=== PATIENT | male | born 1935 | race Caucasian/White ===

== ENCOUNTER 2017-02-06 05:13 | Inpatient (IN) | payer OTHER ==
[~2017-02-06] VITALS: Ht 167.6 cm; Wt 52.6 kg
[2017-02-06] VITALS (10 sets, daily range): BP systolic 81–133; BP diastolic 33–109
--- NOTE | ~2017-02-06 | HC ---
[facility] [place] [address] CONSULTATION Name: AMANDA JULIAN Room #: 544-P [facility] IN ..#: [id number] Admission: 02/06/17 Attend Phys: Franky Ruffin MD, Discharge: 02/07/17 Date of : 34 Report #: [id number] THIS REPORT FOR: //name// CC: Jordan Ruffin REASON FOR CONSULTATION: I was asked to evaluate the patient concerning the sacral decubitus. HISTORY OF PRESENT ILLNESS: The patient was admitted on 01/13/2017 initially with an ischial decubitus of the right side. 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 After extensive discussion, it was determined he would undergo a surgical debridement. Previous cultures had revealed E. coli sensitive to quinolones, ertapenem and aminoglycosides along with Proteus, which was fully susceptible. After surgical debridement, he was placed on meropenem and discharged with a wound VAC and nutritional support. There, it was determined that he was contaminating his wound too frequently with stool and his nutritional status was unable to be maximized. He was therefore rehospitalized on 02/06/2017 for diverting colostomy, PEG tube placement and further surgical debridement of his right ischium. This was undertaken yesterday and the patient has done well. It is also noted that he has had a persistent leukocytosis without evidence of other underlying infection identified. His white count during his hospitalization in December was anywhere from 15-19,000. Today, it is 22,000. The patient has been afebrile and respiratory status has been stable. He does remain on 2 liters of oxygen per nasal cannula. He was otherwise in no distress. He has a PICC line in place. Indwelling Cope catheter. PAST MEDICAL HISTORY, FAMILY HISTORY AND SOCIAL HISTORY: Unchanged from his previous consultation and history and physical. ALLERGIES: He is allergic to PENICILLIN. MEDICATIONS: As noted on his MAR. REVIEW OF SYSTEMS: Noted above. PHYSICAL EXAMINATION: VITAL SIGNS: He is afebrile, hemodynamically stable. GENERAL: He is alert, cooperative and pleasant, in no acute distress. He is on 2 liters of oxygen per nasal cannula. LUNGS: Clear anteriorly. HEART: Regular, without murmur. ABDOMEN: Fairly soft. His colostomy site was unremarkable. His PEG site was unremarkable. GENITOURINARY: Indwelling Cope catheter. Right ischial wound was dressed. [facility] [address] [place] [address] CONSULTATION Name: AMANDA JULIAN Room #: 544-P [facility] IN [facility]#: [id number] Admission: 02/06/17 Attend Phys: Franky Ruffin MD, Discharge: 02/07/17 Date of : 34 Report #: [id number] EXTREMITIES: Changes of advanced rheumatoid arthritis. LABORATORY STUDIES: Sodium 148, potassium 3.9, bicarbonate 23, creatinine 1.1, hemoglobin 8.3, white count 22.5, platelet count 418,000. IMPRESSION AND PLAN: An 81-year-old with advanced rheumatoid arthritis with nonhealing right ischial wound, now attempting to maximize his healing potential. He has a persistent leukocytosis that I still suspect is related to his underlying ischial wound infection. Last week, I did start him on Zyvox when he had a fever spike, but nothing ever grew from his blood cultures and his chest x-ray remained clear. I would therefore recommend continuing his current antibiotic program pending transfer back to [facility]. Though, we will continue his IV antibiotic therapy and follow his white count. <ELECTRONICALLY SIGNED> By: David Cruz MD 02/10/17 0934 [id number] 1548 David Cruz MD /nt
--- NOTE | ~2017-02-06 | S ---
[facility] [place] [address] SURGICAL PATH RPT PROCEDURE Name: SHAY ALBARADO Room #: 544-P ADM IN M.R.#: [id number] Admission: 02/06/17 Date of : 34 Discharge: Report #: [id number] Path Case #: [id number] PATHOLOGY REPORT COLLECTION DATE: 02/06/2017 RECEIVED DATE: 02/06/2017 SUBMITTING PHYS: Dr. Franky Ruffin OTHER PHYS: Dr. Jordan Chow SPECIMEN(S) RECEIVED: A.Right ischial tissue * * * * * * * * * * * * FINAL DIAGNOSIS: Right ischial tissue: - Dense fibrous tissue with acute and chronic inflammation. (IUV:csd; d/t: 02/07/2017) PATHOLOGIST: Hannah Acharya M.D. REPORT ELECTRONICALLY SIGNED BY: Hannah Acharya M.D. DATE/TIME: 02/07/2017 15:40 * * * * * * * * * * * * GROSS PATHOLOGY: The specimen is received in formalin labeled "Shay Albarado, right ischial tissue". Received is a segment of white-colbert yellow-colbert fibrous soft tissue measuring 3.7 x 1.5 x 1.0 cm in greatest dimensions. The specimen is submitted representatively in cassette A1. (CAA; 02/06/2017) CLINICAL HISTORY: Decubitus ulcer INITIAL CPT CODE(S): A; 10640 Professional services performed by [facility] at [facility] [address], [place] [address] Technical services performed by [facility] at [address] [place] [address], [address] [address]. [facility] [address] [place] [address] SURGICAL PATH RPT PROCEDURE Name: SHAY ALBARADO Room #: 544-P ADM IN M.R.#: [id number] Admission: 02/06/17 Date of : 34 Discharge: Report #: [id number] Path Case #: [id number] [place] [id number] [address] [address] PHONE: [phone] DIRECTOR: Mariano Pompa M.D. * * * END OF REPORT * * *
--- NOTE | ~2017-02-06 | O ---
[facility] [place] [address] OPERATIVE REPORT Name: FREDERICK JULIANROLANDO Broussard Room #: 544-P [facility] IN M.R.#: [id number] Admission: 02/06/17 Attend Phys: Franky Ruffin MD, Discharge: Date of : 34 Report #: [id number] THIS REPORT FOR: //name// CC: Jordan Ruffin DATE OF SERVICE: 02/06/2017 PREOPERATIVE DIAGNOSES: 1. Right ischial stage IV decubitus wound. 2. Severe rheumatoid arthritis. 3. Chronic obstructive pulmonary disease. 4. Pulmonary fibrosis. 5. Osteoporosis. 6. Anemia of chronic disease. 7. Severe protein-calorie malnutrition. 8. Generalized debility. 9. Need for fecal diversion. POSTOPERATIVE DIAGNOSES: 1. Right ischial stage IV decubitus wound. 2. Severe rheumatoid arthritis. 3. Chronic obstructive pulmonary disease. 4. Pulmonary fibrosis. 5. Osteoporosis. 6. Anemia of chronic disease. 7. Severe protein-calorie malnutrition. 8. Generalized debility. 9. Need for fecal diversion. PROCEDURES PERFORMED: 1. Excisional debridement of skin, subcutaneous tissue, muscle and bone of a right ischial decubitus wound, ultimately measuring 14.5 x 8.5 cm in dimension (123.25 square cm). Preoperative wound measurements were 14 x 8 cm with scant amount of virginie wound necrosis. 2. Diverting loop transverse colostomy. 3. EGD with PEG tube placement. SURGEON: Franky Ruffin M.D. CLERK: BALDEV Avelar. ANESTHESIA: General endotracheal anesthesia. ESTIMATED BLOOD LOSS: Minimal (less than 10 mL). [facility] [address] [place] [address] OPERATIVE REPORT Name: AMANDA JULIAN Room #: 544-P ADM IN .R.#: [id number] Admission: 02/06/17 Attend Phys: Franky Ruffin MD, Discharge: Date of : 34 Report #: [id number] COMPLICATIONS: None appreciated. SPECIMENS: All excised tissue from the decubitus wound, including bone to pathology. INDICATIONS: The patient is an 81-year-old male with severe rheumatoid arthritis and contractures, who has developed a severe right ischial decubitus wound and underwent a prior debridement by orthopedic surgery on 01/13/2017. The patient has osteomyelitis of the right ischium and was placed on IV antibiotics and a wound VAC and has been at [facility], undergoing local wound care. Unfortunately, he is having significant difficulties with the wound VAC due to intolerance, secondary to pain and his wound has had slight recurrent necrosis and fibrinopurulent drainage that necessitated repeat debridement. As the wound is near his anal orifice, and he has consistent stooling, contaminating the wound, he does also have need for diverting colostomy for fecal diversion to allow the wound to heal and necessitated PEG tube placement as he has severe protein-calorie malnutrition with very poor p.o. intake. DESCRIPTION OF PROCEDURE: After explaining the risks, benefits, and alternatives of the procedure with the patient in detail in the preoperative holding area and obtaining written consent, the patient was brought to the operating room and placed supine on the operating room table. After conducting a thorough timeout procedure verifying correct patient and procedure, the patient was given general endotracheal anesthesia. Once adequate anesthesia was obtained, SCDs were placed on the patient's bilateral lower extremities, and he was already on an inpatient regimen of IV antibiotic therapy in the form of meropenem and Zyvox, which is all in line with the SCIP protocol. The patient was then positioned on the operating room table in the left lateral decubitus position, and his right ischial wound was prepped and draped in the standard surgical sterile fashion. Electrocautery was used to circumferentially debride all skin, subcutaneous tissue, muscle, and bone from the periphery of the wound, as well as in the depths of the wound, back to healthy bleeding vascularized tissue. The Activaero ultrasonic debridement tool was then used to remove all remaining nonviable tissue, as well as biofilm evident throughout the entirety of the wound, which brought the wound back to healthy vascularized clean tissue throughout. Hemostasis was attained with electrocautery, and the wound was packed tightly with sterile saline soaked Kerlix gauze, dressed with ABDs and Medipore tape. The patient was then positioned in the supine position, where I proceeded to perform the EGD with PEG tube placement. The [employer] upper endoscope was used to intubate the oropharynx and was traversed down into the esophagus with ease. This was advanced past the GE junction, where the pylorus was identified and intubated. The scope was advanced to the second portion of the duodenum where slow and careful withdrawal of the EGD scope showed no evidence of duodenitis, gastritis, esophagitis, mass lesions, or ulcerations. A retroflexion view of the scope showed very small hiatal hernia. The scope was [facility] [address] [place] [address] OPERATIVE REPORT Name: AMANDA JULIAN Room #: 352-P ADM IN [place].#: [id number] Admission: 02/06/17 Attend Phys: Franky Ruffin MD, Discharge: Date of : 34 Report #: [id number] straightened out in the gastric lumen, and the stomach was fully insufflated. We had easy transillumination through the thin abdominal wall in the upper abdomen at the midline, as well as to the left upper quadrant. Manual external ballottement at this location confirmed the appropriate site of PEG tube placement. The upper abdomen was then prepped and draped in the standard surgical sterile fashion. 5 mL of 1% plain lidocaine were used to anesthetize the skin at the chosen location. A #11 bladed scalpel was used to create a 7-mm transverse skin incision at this location. The needle-sheath apparatus was directed through this incision site and through the anterior gastric wall under direct vision with the EGD scope, and the needle was removed. A wire was placed down the sheath, which was then grasped with a loop snare down the EGD scope and the entire EGD scope was removed via the oropharynx, bringing the loop snare and the wire through with it. I then attached the pull type PEG tube to the wire and proceeded to pull this back down through the anterior gastric wall and anterior abdominal wall in standard fashion. The EGD scope was placed back into the gastric lumen, where the internal flange was seen to reside against the anterior gastric wall to where it was snug, but not extremely tight, measured 3 cm at the skin level externally. The stomach was fully desufflated with the EGD scope, and it was removed and passed off the field. I then attached the external flange clamp and end adaptor to the PEG tube in standard fashion. The patient's abdomen was then prepped and draped in the standard surgical sterile fashion, thoroughly. A 10 mL of 0.5% Marcaine with epinephrine were used to anesthetize the skin, midway between the xiphoid and the umbilicus down the midline. A #10-Bladed scalpel was used to create a 2.5 cm vertical incision at this location. Electrocautery was used to carry this down through the skin and subcutaneous tissues to ensure hemostasis until I arrived upon the fascia. The fascia was scored longitudinally, allowing me to place the finger into the abdomen with ease, and I proceeded to open the 2.5 cm vertical fascial incision in a controlled setting, using my finger in the abdomen to prevent injury to the underlying structures from electrocautery thermal burn. Once I had opened the fascia appropriately. The transverse colon was seen to reside immediately posterior to my incision. A Yola clamp was used to grasp this and elevate it into the wound. A window was made in the mesentery with electrocautery, and the colostomy retention bar was placed through this window in the mesentery and was secured to the skin using 2-0 nylon in standard fashion. The antimesenteric aspect of the colon was elevated with Debakey forceps, and a small colotomy was made with electrocautery. I proceeded to extend this colotomy longitudinally on the antimesenteric aspect of the colon in a controlled fashion using a hemostat and colotomy to prevent injury to the back wall of the colon with electrocautery. Once I had opened the colon approximately 2 cm longitudinally, I proceeded to place four imbricating sutures of 3-0 Vicryl in an interrupted fashion, taking full thickness bites of the colon and anchoring it to the dermis on either side of the retention bar, both superiorly and inferiorly. I then used 3-0 Vicryl to anchor the mucocutaneous junctions on both the right lateral and left lateral aspects of the loop colostomy in standard running fashion. This gave us an excellently oriented loop transverse colostomy. Digital finger [facility] [address] [place] [address] OPERATIVE REPORT Name: AMANDA JULIAN Room #: 544-P [facility] IN M.R.#: [id number] Admission: 02/06/17 Attend Phys: Franky Ruffin MD, Discharge: Date of : 34 Report #: [id number] intubation of the colostomy showed both limbs to be patent to a subfascial level. A sterile colostomy appliance was then applied in standard fashion, completing the procedure. At the end of the procedure, all instrument, needle, and sponge counts were correct. The patient tolerated the procedure without incident, was awakened in the operating room and transitioned to the recovery room in stable condition with no apparent complications. <ELECTRONICALLY SIGNED> By: Franky Ruffin MD, FACS 02/07/17 0751 1200 1459 Franky Ruffin MD, FACS /nt
--- NOTE | ~2017-02-06 | EKG ---
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 : 1935 Requested By: Franky Ruffin Order Number: [id number] MD: Butch Newman Measurements Intervals [place] Rate: 112 P: 12 [place]: 126 QRS: 15 QRSD: 82 T: 62 QT: 324 QTc: 443 Interpretive Statements Sinus tachycardia with atrial premature complexes Abnormal R-wave progression, early transition No previous ECG available for comparison Electronically Signed On 02-07-2017 8:22:32 CDT by Butch Newman [email or web address] <ELECTRONICALLY SIGNED> By: Butch Newman MD, [facility] 02/07/17 0822 2 2 Butch Newman MD, [facility] /EPI
--- NOTE | ~2017-02-06 | H ---
[facility] [place] [address] HISTORY AND PHYSICAL Name: ELIELAMANDA W Room #: 544-P [facility] IN M.R.#: [id number] Admission: 02/06/17 Attend Phys: Franky Ruffin MD, Discharge: 02/07/17 Date of : 34 Report #: [id number] THIS REPORT FOR: //name// For History and Physical, please see office documentation/handwritten note in the patient's medical record. <ELECTRONICALLY SIGNED> By: Franky Ruffin MD, FACS 02/10/17 1504 1033 Franky Ruffin MD, FACS /jr
[~2017-02-06 05:13] MED LIST: ACETAMINOPHEN-1 EAC1 PO; ARAVA20 MG PO; ATIVAN1 MG PO; BAYER ADVANCED500 MG PO; BAZA CR.1 E1 TP; CALCIUM 600 +1 EAC7 PO; CALCIUM OYSTER500 MG PO; CEFTRIAXONE40 MG/M1 IV; CLOTRIMAZOLE-745 GM TOP; COLACE100 MG PO; DAKIN'S473 M1 MC; FENTANYL PA12 MCG/H1 TP; FENTANYL PA50 MCG/HR TRANSDERM; HYDROCERIN CREA1 JAR TOP; JUVEN PACKET1 EACH PO; K-DUR 20 MEQ T20 MEQ PO; LASIX 80 MG TAB80 MG PO; LINEZOLID600 MG PO; LOMOTIL LIQUID60 ML; LOPERAMIDE 2 MG2 M1 PO; MACROBID 100 M100 M1 PO; MEGESTROL800 MG/20 PO; MEROPENEM-500 MG/50 IVPB; MORPHINE SU2 MG/1 M1 IJ; NORCO 5-325 TA1 EACH PO; OPIUM PO; OPIUM10 MG/1 ML PO; PREDNISONE 5 MG5 M1 PO; PRILOSEC40 MG PO; PROTONIX40 M1 PO; TYLENOL325 MG PO; UNICOMPLEX M TA1 TA1 PO; VANCOMYCIN HCL1 GM IV; VITAMIN D 5050000 I1 PO; VITAMINC500 PO; ZINC SULFATE 2220 M1 PO
[2017-02-06 07:10] LABS: HEMATOCRIT 25.5 % (42.0-52.0); HEMOGLOBIN 8.2 gm/dL (14.0-18.0); MCH 29.2 pg (26.0-34.0); MCHC 32.2 g/dL (28.0-37.0); MCV 90.9 fL (80.0-100.0); RBC 2.8 mil/uL (4.50-6.00); RDW 17.2 % (10.5-14.5); WBC 19.4 thou/uL (4.0-11.0)
[2017-02-06 08:30] LABS: CALCIUM 7.5 mg/dL (8.5-10.1); POTASSIUM 3.8 mmol/L (3.5-5.1)
[2017-02-07 00:02] VITALS: BP 111/60
[2017-02-07 03:21] VITALS: BP 112/47
[2017-02-07 06:06] LABS: HEMATOCRIT 26.6 % (42.0-52.0); HEMOGLOBIN 8.3 gm/dL (14.0-18.0); MCH 28.7 pg (26.0-34.0); MCHC 31.4 g/dL (28.0-37.0); MCV 91.4 fL (80.0-100.0); RBC 2.91 mil/uL (4.50-6.00); RDW 17.2 % (10.5-14.5); WBC 22.5 thou/uL (4.0-11.0)
[2017-02-07 06:21] LABS: CALCIUM 7.5 mg/dL (8.5-10.1); CREATININE 1.1 mg/dL (0.6-1.3); POTASSIUM 3.9 mmol/L (3.5-5.1)
[2017-02-07 07:51] VITALS: BP 134/55
[2017-02-07 15:54] VITALS: BP 99/57
== END 2017-02-07 19:55 | DRG 981 ==
LOC: TBA 05:13 → 5S 05:13 → EDSTATUS 11:15 → PRE 11:17 → OR 12:52 → 5S 02-07 19:55
PROVIDERS: Surgery
PROC: 0D1L0Z4 Bypass Transverse Colon to Cutaneous, Open Approach (ICD-10-PCS; principal; 2017-02-06)
PROC: 0DH63UZ Insertion of Feeding Device into Stomach, Percutaneous Approach (ICD-10-PCS; principal; 2017-02-06)
PROC: 0QB10ZZ Excision of Sacrum, Open Approach (ICD-10-PCS; principal; 2017-02-06)
PROC: 02HV33Z Insertion of Infusion Device into Superior Vena Cava, Percutaneous Approach (ICD-10-PCS; 2017-02-07)
DX: L89.154 Pressure ulcer of sacral region, stage 4 (principal); E43 Unspecified severe protein-calorie malnutrition; M86.9 Osteomyelitis, unspecified; Z68.1 Body mass index [BMI] 19.9 or less, adult; L89.214 Pressure ulcer of right hip, stage 4; L89.894 Pressure ulcer of other site, stage 4; D63.8 Anemia in other chronic diseases classified elsewhere; M06.9 Rheumatoid arthritis, unspecified; J44.9 Chronic obstructive pulmonary disease, unspecified; J84.10 Pulmonary fibrosis, unspecified; M81.0 Age-related osteoporosis without current pathological fracture; Z79.82 Long term (current) use of aspirin; Z79.899 Other long term (current) drug therapy; Z88.0 Allergy status to penicillin
CPT/HCPCS: 10785; 50010; 50101; 50386; 50403; 50612; 53353; 53354; 56524; 56525; 57092; 62110; 62900; 70005